=== PATIENT | male | born 1940 | race Caucasian/White ===

== ENCOUNTER 2019-02-17 12:56 | Outpatient (CLI) | payer MEDICARE ==
--- NOTE | 2019-02-17 13:44 | MRI ---
MRI LUMBAR SPINE NONCONTRAST: HISTORY: Discogenic low back pain. Right hip pain and pain radiating down the right leg x1 month. COMPARISON: None. FINDINGS: Slightly heterogeneous T1 marrow signal intensity suggesting senescent change. Lumbar spine vertebral body height is maintained. There is no fracture. There is no significant STIR hyperintensity to suggest vertebral body edema or ligamentous injury. There are type I Modic changes at the L2-L3 disc space. Spondylolisthesis: L3-L4: 1.9 mm of retrolisthesis. L5-S1: 3.9 mm of anterolisthesis. Appropriate signal intensity of the visualized paraspinal muscles and solid organs. Right extrarenal pelvis is noted incidentally. Visualized bladder is unremarkable. Conus medullaris terminates at the mid L1 level. T12-L1:Adequate disc hydration. No significant central canal stenosis or significant neural foraminal narrowing. L1-L2:Mild loss of disc space height. Minimal left and right paracentral disc bulges. Minimal central canal stenosis. Bilaterally, neural foramina are patent. L2-L3:Mild loss of disc space height. Broad-based disc bulge, ligament flavum thickening and facet hy pertrophy result in minimal central canal stenosis. Moderate right and left neural foraminal narrowing. L3-L4:Mild loss of disc space height. Broad-based disc encroaches upon both subarticular zones and ma kes contact with bilateral traversing L4 nerve roots. No significant mass effect or displacement. No significant central canal stenosis. Mild bilateral facet hypertrophy. A small amount of fluid in t he left facet joint. No significant central canal stenosis. Moderate right and [id number] left neural foraminal narrowing. L4-L5:Moderate loss of disc space height. Broad-based disc bulge and facet hypertrophy result in narr owing of bilateral subarticular zones. Partial obscuration of bilateral traversing L5 nerve roots. Trace amount of fluid in the right facet joint. No significant stenosis of the thecal sac. Moderate r ight and severe left foraminal narrowing. L5-S1:Broad-based disc bulge with a minimal central superior disc extrusion. There is bilateral facet hypertrophy along with ligamentum flavum thickening. Mild to moderate central canal stenosis. Mild right and moderate left neural foraminal narrowing. Bilateral pars defects at L5 are noted. IMPRESSION: 1. Multilevel degenerative changes of the lumbar spine as described above. 2. 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 Transcribed Date/Time: 02/17/2019 2:34 PM
== END 2019-02-17 12:57 | disposition home or self-care (01) ==
LOC: TBSIIMAG 12:56
PROVIDERS: ATTEND Family Medicine
DX: M51.36 Other intervertebral disc degeneration, lumbar region (principal); M47.816 Spondylosis without myelopathy or radiculopathy, lumbar region; M43.17 Spondylolisthesis, lumbosacral region
CPT/HCPCS: 72148

== ENCOUNTER 2020-11-08 08:43 | Outpatient (CLI) | payer MEDICARE ==
[2020-11-08 11:02] LABS: Mean Corpuscular HGB CONC 34.8 g/dL (32.0-36.0); Mean Corpuscular Hemoglobin 30.7 pg (27.0-33.0); Mean Corpuscular Volume 88.2 fl (81.2-95.1); Mean Platelet Volume 10.9 fl (7.4-10.4); Platelet Count 189 10x3/uL (150-450); RBC Distribution Width 12.4 % (11.5-14.5); Red Blood Cell (RBC) Count 4.56 10x6/uL (4.32-5.72); White Blood Cell (WBC) Count 5.1 10x3/uL (3.5-10.5)
[2020-11-08 11:07] LABS: Anion Gap 14 mmol/L (10-20); BUN (Urea Nitrogen) 24 mg/dL (8.4-25.7); Calc. Creatinine Clearance 0 mL/min (70-130); Calcium 9.8 mg/dL (7.8-10.44); Carbon Dioxide 25 mmol/L (23-31); Chloride 102 mmol/L (98-107); Glucose 99 mg/dL (83-110); Potassium 4.5 mmol/L (3.5-5.1); Sodium 136 mmol/L (136-145)
[2020-11-08 11:08] LABS: PTT 26.3 sec (22.0-33.0); Prothrombin Time 10.9 sec (9.5-12.1)
[2020-11-08 21:48] LABS: SARS-CoV-2 PCR by NAA Not Detected (NotDetected)
== END 2020-11-08 08:44 | disposition home or self-care (01) ==
LOC: LABBT 08:43
PROVIDERS: ATTEND Surgery
DX: Z01.818 Encounter for other preprocedural examination (principal); M50.00 Cervical disc disorder with myelopathy, unspecified cervical region; M47.12 Other spondylosis with myelopathy, cervical region; M48.02 Spinal stenosis, cervical region; Z20.822 Contact with and (suspected) exposure to COVID-19
CPT/HCPCS: 80048; 85027; 85610; 85730; 86850; 86900; 86901; 93005; U0003; U0005; 93010

== ENCOUNTER 2020-11-11 06:08 | Observation (INO) | payer MEDICARE ==
[2020-11-10 13:25] VITALS: BMI 27.2
[2020-11-11] MEDS ORDERED: Thrombin 5000 UNITS/5 ML VIAL ONE (06:33)
[2020-11-11] MEDS ORDERED: ceFAZolin 2 GM/DEX 5% 100 ML BAG ONE (06:47)
[2020-11-11] MEDS ORDERED: Fentanyl 250 MCG/5 ML VIAL ONE (07:02)
[2020-11-11] MEDS ORDERED: PROPOFOL 200 MG/20 ML VIAL ONE (07:34)
[2020-11-11] MEDS ORDERED: Dexamethasone 20 MG/5 ML VIAL ONE (07:34)
[2020-11-11] MEDS ORDERED: Rocuronium Bromide 10 MG/ML (10ML VIAL) ONE (07:34)
[2020-11-11] MEDS ORDERED: PHENYLEPHRINE-NS 100 MCG/ML 10 ML SYRINGE ONE (07:34)
[2020-11-11] MEDS ORDERED: Lidocaine 1% PF 5 ML VIAL ONE (07:34)
[2020-11-11] MEDS ORDERED: Ondansetron PF 4 MG/2 ML Vial ONE (07:34)
[2020-11-11] MEDS ORDERED: HYDROmorphone 2 MG/ML VIAL SLOW IVP PRN (09:29)
[2020-11-11] MEDS ORDERED: Promethazine HCl 25 MG/ML VIAL IVPB PRN (09:29)
[2020-11-11] MEDS ORDERED: Morphine Sulfate 2 MG/ML SYRINGE SLOW IVP PRN (09:29)
[2020-11-11] MEDS ORDERED: PACU-Morphine 4MG/ML VIAL SLOW IVP PRN (09:29)
[2020-11-11] MEDS ORDERED: Promethazine HCl 25 MG/ML VIAL IM PRN (09:29)
[2020-11-11] MEDS ORDERED: Ondansetron HCl/PF 4 MG/2 ML Vial IVP PRN (09:29)
[2020-11-11] MEDS ORDERED: Acetaminophen/Codeine 30-300mg Tablet PO PRN (09:42)
[2020-11-11] MEDS ORDERED: Acetaminophen 325 MG TAB PO PRN (09:42)
[2020-11-11] MEDS ORDERED: tiZANidine HCl 4 MG TAB PO PRN (09:42)
[2020-11-11] MEDS ORDERED: Morphine 2 MG/ML VIAL SLOW IVP PRN (09:42)
[2020-11-11] MEDS ORDERED: HYDROcodone/Acetaminophen 7.5/325 mg Tablet PO PRN (09:42)
[2020-11-11] MEDS ORDERED: traMADol HCl 50 MG TAB PO PRN (09:42)
[2020-11-11] MEDS ORDERED: hydrALAZINE 20 MG/ML VIAL SLOW IVP PRN (09:46)
[2020-11-11] MEDS: Sodium Chloride 0.9% 1,000 ML IV SCH ×2 (11:20→23:22)
[2020-11-11] MEDS ORDERED: CEFAZOLIN 2 GM in Premix Bag 1 BAG IVPB SCH (16:00)
[2020-11-11] MEDS: ceFAZolin Sodium/D5W 2 GM in Premix Bag 1 BAG IVPB SCH ×2 (16:15→23:22)
[2020-11-11] MEDS: Mometasone 100 MCG/Formoterol 5 MCG 120 PUFF INHALER INH SCH (18:42)
[2020-11-11] MEDS: Vit A,C & E/Lutein/Minerals Tablet PO SCH (20:10)
[2020-11-11] MEDS: Lisinopril/Hydrochlorothiazide 20 mg/12.5 mg Tablet PO SCH (20:11)
[2020-11-11] MEDS ORDERED: Ezetimibe 10 MG TAB PO SCH (21:00)
[2020-11-12] MEDS: Mometasone 100 MCG/Formoterol 5 MCG 120 PUFF INHALER INH SCH (07:04)
[2020-11-12 08:24] VITALS: BP 114/70; TEMP 99
[2020-11-12] MEDS: ceFAZolin Sodium/D5W 2 GM in Premix Bag 1 BAG IVPB SCH (08:54)
[2020-11-12] MEDS: Vit A,C & E/Lutein/Minerals Tablet PO SCH (08:55)
[2020-11-12] MEDS: Lisinopril/Hydrochlorothiazide 20 mg/12.5 mg Tablet PO SCH (08:55)
[2020-11-12] MEDS ORDERED: Multivit, Therapeutic 1 TAB PO SCH (09:00)
== END 2020-11-12 11:18 | disposition home or self-care (01) ==
LOC: SDC 06:08 → SJJU 09:42
PROVIDERS: ADMIT Surgery; ATTEND Surgery
PROC: 0RG20A0 Fusion of 2 or more Cervical Vertebral Joints with Interbody Fusion Device, Anterior Approach, Anterior Column, Open Approach (ICD-10-PCS; principal; 2020-11-11)
DX: M48.02 Spinal stenosis, cervical region (principal); M50.01 Cervical disc disorder with myelopathy, high cervical region; M50.11 Cervical disc disorder with radiculopathy, high cervical region; M47.12 Other spondylosis with myelopathy, cervical region; M47.22 Other spondylosis with radiculopathy, cervical region; Z79.899 Other long term (current) drug therapy; Z88.8 Allergy status to other drugs, medicaments and biological substances
CPT/HCPCS: 36415; 76000; 86850; 86900; 86901; 96365; 96376; C1713; C1768; C1776; G0378; J0690; J1100; J2405; J2704; J3010; J7050

== ENCOUNTER 2020-11-13 05:25 | Observation (INO) | payer MEDICARE ==
[2020-11-13 06:24] LABS: #Lymphocytes 1.9 thou/uL (1.20-3.40); %Basophils 0.1 % (0.0-1.0); %Eosinophils 0.3 % (0.0-10.0); %Lymphocytes 21.4 % (21.0-51.0); %Neutrophils 67.2 % (42.0-75.0); Hemoglobin 13.2 g/dL (14.0-18.0); Mean Corpuscular HGB CONC 33.8 g/dL (32.0-36.0); Mean Corpuscular Hemoglobin 31.7 pg (27.0-31.0); Mean Corpuscular Volume 93.7 fL (78.0-98.0); Mean Platelet Volume 8.3 fL (7.4-10.4); Platelet Count 169 thou/uL (130-400); Red Blood Cell (RBC) Count 4.18 mill/uL (4.70-6.10); White Blood Cell (WBC) Count 8.9 thou/uL (4.8-10.8)
[2020-11-13] MEDS ORDERED: Dexamethasone 10 MG/ML VIAL ONE (06:30)
[2020-11-13 06:43] LABS: ALT (SGPT) 17 U/L (8-55); AST (SGOT) 27 U/L (5-34); Alkaline Phosphatase 57 U/L (40-110); Anion Gap 12 mmol/L (10-20); BUN (Urea Nitrogen) 15 mg/dL (8.4-25.7); Bilirubin, Total 0.9 mg/dL (0.2-1.2); Calc. Creatinine Clearance 0 mL/min (70-130); Calcium 9.3 mg/dL (7.8-10.44); Carbon Dioxide 24 mmol/L (23-31); Chloride 104 mmol/L (98-107); Globulin 2.2 g/dL (2.4-3.5); Glucose 109 mg/dL (83-110); Potassium 4.3 mmol/L (3.5-5.1); Protein, Total 6.2 g/dL (5.8-8.1); Sodium 136 mmol/L (136-145)
[2020-11-13] MEDS ORDERED: diphenhydrAMINE 50 MG/ML VIAL IVP PRN (09:18)
[2020-11-13] MEDS ORDERED: Mag-Al 1200 mg/1200 mg/30 ML UDCUP PO PRN (09:18)
[2020-11-13] MEDS ORDERED: Promethazine HCl 25 MG/ML VIAL IM PRN (09:18)
[2020-11-13] MEDS ORDERED: Ondansetron PF 4 MG/2 ML Vial IVP PRN (09:18)
[2020-11-13] MEDS ORDERED: tiZANidine HCl 4 MG TAB PO PRN (09:18)
[2020-11-13] MEDS ORDERED: HYDROcodone/Acetaminophen 10/325 mg Tablet PO PRN (09:18)
[2020-11-13] MEDS ORDERED: traMADol HCl 50 MG TAB PO PRN (09:18)
[2020-11-13] MEDS ORDERED: Morphine 2 MG/ML VIAL SLOW IVP PRN (09:18)
[2020-11-13] MEDS ORDERED: Chloraseptic Spray 180 ml Bottle PO PRN (09:20)
[2020-11-13] MEDS ORDERED: hydrALAZINE 20 MG/ML VIAL SLOW IVP PRN (09:26)
[2020-11-13 09:51] LABS: SARS-CoV-2 NAA Rapid Test Not Detected (NotDetected)
[2020-11-13] MEDS ORDERED: Dexamethasone 4 mg/ml Vial SLOW IVP SCH (12:00)
[2020-11-13] MEDS ORDERED: Ketorolac Tromethamine 30 MG/ML VIAL IVP SCH (12:00)
[2020-11-13 14:54] VITALS: BMI 26.5
[2020-11-13] MEDS: Dexamethasone 4 mg/ml Vial SLOW IVP SCH ×2 (15:39→20:09)
[2020-11-13] MEDS: Ketorolac Tromethamine 30 MG/ML VIAL IVP SCH ×2 (15:40→20:08)
[2020-11-13] MEDS: Sodium Chloride 0.9% 1,000 ML IV SCH (15:41)
[2020-11-13] MEDS: Mometasone 100 MCG/Formoterol 5 MCG 120 PUFF INHALER INH SCH (19:50)
[2020-11-13] MEDS: Famotidine/PF 20 mg/2ml Vial SLOW IVP SCH (20:09)
[2020-11-14] MEDS: Dexamethasone 4 mg/ml Vial SLOW IVP SCH ×2 (03:22→09:28)
[2020-11-14] MEDS: Sodium Chloride 0.9% 1,000 ML IV SCH ×2 (03:25→12:01)
[2020-11-14] MEDS: Ketorolac Tromethamine 30 MG/ML VIAL IVP SCH ×2 (03:27→09:31)
[2020-11-14] MEDS: Mometasone 100 MCG/Formoterol 5 MCG 120 PUFF INHALER INH SCH (07:19)
[2020-11-14] MEDS ORDERED: Lisinopril/Hydrochlorothiazide 20 mg/12.5 mg Tablet PO SCH (09:00)
[2020-11-14] MEDS: Famotidine/PF 20 mg/2ml Vial SLOW IVP SCH (09:34)
[2020-11-14 12:35] VITALS: BP 137/77; TEMP 97.2
[2020-11-14] MEDS ORDERED: FLU VACC QS2021-22(65YR UP)/PF 240 MCG/0.7 ML SYRINGE IM ONE (18:00)
== END 2020-11-14 12:35 | disposition home or self-care (01) ==
LOC: ERS 05:25 → SURG B 09:21
PROVIDERS: ADMIT Neurological Surgery; ATTEND Neurological Surgery
DX: R13.19 Other dysphagia (principal); I10 Essential (primary) hypertension; J45.909 Unspecified asthma, uncomplicated; Z79.82 Long term (current) use of aspirin; Z79.899 Other long term (current) drug therapy; Z88.8 Allergy status to other drugs, medicaments and biological substances; Z90.49 Acquired absence of other specified parts of digestive tract; Z98.1 Arthrodesis status; Z20.822 Contact with and (suspected) exposure to COVID-19; M48.02 Spinal stenosis, cervical region; M50.01 Cervical disc disorder with myelopathy, high cervical region; M50.11 Cervical disc disorder with radiculopathy, high cervical region; M47.12 Other spondylosis with myelopathy, cervical region; M47.22 Other spondylosis with radiculopathy, cervical region
CPT/HCPCS: 20930; 20936; 22551; 22552 ×2; 22853 ×3; 71045; 72040; 80053; 83880; 85025; 86850; 86900; 86901; 93005; 94640 ×4; 96365; 96374; 96376 ×2; 99285; C1713 ×2; C1768; C1776; G0378 ×2; U0002; 36415; 76000; J0690; J1100; J1885; J2405; J2704; J3010; J7050; S0028

== ENCOUNTER 2021-02-18 10:17 | Emergency (ER) | payer OTHER, MEDICARE ==
[~2021-02-18 10:17] MED LIST: Iopamidol 370 76% 100 ML VIAL ONE
[2021-02-18] MEDS ORDERED: Ketorolac Tromethamine 30 MG/ML VIAL ONE (10:28)
[2021-02-18] MEDS ORDERED: Morphine 4 MG/ML VIAL ONE (10:28)
[2021-02-18] MEDS ORDERED: Ondansetron PF 4 MG/2 ML Vial ONE (10:46)
[2021-02-18 10:55] LABS: #Eosinphils 0.1 thou/uL (0.0-0.7); #Lymphocytes 1.8 thou/uL (1.20-3.40); #Monocytes 0.5 thou/uL (0.11-0.59); #Neutrophils 4.3 thou/uL (1.40-6.50); %Basophils 0.3 % (0.0-1.0); %Eosinophils 1.4 % (0.0-10.0); %Lymphocytes 26.7 % (21.0-51.0); %Neutrophils 64.6 % (42.0-75.0); Hemoglobin 13.5 g/dL (14.0-18.0); Mean Corpuscular HGB CONC 34.4 g/dL (32.0-36.0); Mean Corpuscular Hemoglobin 32.5 pg (27.0-31.0); Mean Corpuscular Volume 94.4 fL (78.0-98.0); Mean Platelet Volume 7.2 fL (7.4-10.4); Platelet Count 172 thou/uL (130-400); RBC Distribution Width 12.2 % (11.5-14.5); Red Blood Cell (RBC) Count 4.15 mill/uL (4.70-6.10); White Blood Cell (WBC) Count 6.6 thou/uL (4.8-10.8)
[2021-02-18 11:20] LABS: ALT (SGPT) 31 U/L (8-55); AST (SGOT) 32 U/L (5-34); Acetaminophen Less than 6.0 mcg/mL (10.0-30.0); Albumin 3.6 g/dL (3.4-4.8); Alcohol Less than 10 mg/dL (Less than 10); Alkaline Phosphatase 64 U/L (40-110); Anion Gap 11 mmol/L (10-20); BUN (Urea Nitrogen) 18 mg/dL (8.4-25.7); Bilirubin, Total 0.5 mg/dL (0.2-1.2); Calc. Creatinine Clearance 0 mL/min (70-130); Calcium 9.1 mg/dL (7.8-10.44); Carbon Dioxide 25 mmol/L (23-31); Chloride 100 mmol/L (98-107); Globulin 2.3 g/dL (2.4-3.5); Glucose 105 mg/dL (83-110); Magnesium 1.6 mg/dL (1.6-2.6); Potassium 4.3 mmol/L (3.5-5.1); Protein, Total 5.9 g/dL (5.8-8.1); Salicylate Less than 8.0 mg/dL (15.0-30.0); Sodium 132 mmol/L (136-145)
== END 2021-02-18 12:26 | disposition home or self-care (01) ==
LOC: ERS 10:17
DX: S06.0X0A Concussion without loss of consciousness, initial encounter (principal); S20.219A Contusion of unspecified front wall of thorax, initial encounter; I10 Essential (primary) hypertension; Z79.899 Other long term (current) drug therapy; V49.00XA Driver injured in collision with unspecified motor vehicles in nontraffic accident, initial encounter
CPT/HCPCS: 36415; 70450; 71045; 72125; 74177; 80053; 80307; 83735; 85025; 93005; 96374; 96375; G0390; J1885; J2270; J2405; Q9967